=== PATIENT | female | born 1995 | race Caucasian/White ===

== ENCOUNTER 2016-03-16 12:49 | Observation (INO) ==
[2016-03-16] MEDS ORDERED: 0.9 % Sodium Chloride 1,000 ML IVC ONE (13:15)
[2016-03-16] MEDS ORDERED: *HR* Nalbuphine 20 MG/ML AMPUL IVP STA (13:36)
[2016-03-16] MEDS ORDERED: Metoclopramide 10 MG/2 ML VIAL IVP ONE (13:36)
--- NOTE | 2016-03-16 13:37 | Emergency Department Note ---
Disposition Clinical Impression: Appendicitis Qualifiers: Appendicitis type: acute appendicitis Acute appendicitis type: unspecified acute appendicitis type Qualified Code(s): K35.80 - Unspecified acute appendicitis Disposition: Admitted As Inpatient Referrals: Tomas Gaines MD [Primary Care Provider] - Forms: Work/School Release, ED Satisfaction Letter Abdominal Pain HPI - General Chief Complaint: ED Abdominal Pain Stated Complaint: abd pain, hot flashes Time Seen by Provider: 03/16/16 13:15 Source: patient Mode of arrival: ambulatory Limitations: no limitations Nursing Notes Reviewed: Yes Vital Signs Reviewed: Yes - History of Present Illness Pt Subjective Complaint: abdominal pain Onset (ago): day(s) (1) Consistency: intermittent, Worsening Location: RLQ Pain Scale: 8 Quality: aching Radiation: none Migration to: no migration Improves with: nothing Worsens with: nothing Treatments prior to arrival: none - Related Data Previous Rx's Medication Instructions Recorded Butalb/Acetaminophen/Caffeine 1 each PO Q6H PRN #8 capsule 10/04/14 [Fioricet 50-300-40 mg Capsule] Promethazine [Phenergan] 25 mg PO Q6HR PRN #10 tablet 10/04/14 Amoxicillin 875 mg PO BID #14 tablet 02/09/16 Allergies Allergy/AdvReac Type Severity Reaction Status Date / Time hydrocodone [From Vicodin] Allergy Rash Verified 03/16/16 13:07 ibuprofen [From Advil] Allergy Rash Verified 03/16/16 13:07 All systems ED: reviewed and negative except as stated. Constitutional: Denies: fever, chills, weakness Abdominal Pain PMH - Past Medical History Medical history: Reports: other Female Surgical History: Reports: Tonsillectomy VP SOFTWARE history: Reports: no VP SOFTWARE history : 1 Para: 0 Psychiatric history: Reports: no psych history - Social History Smoking status: Never smoker Alcohol use: Reports: none Drug use: Reports: none Physical Exam - General Limitations: no limitations General appearance: alert - Head Head exam: atraumatic, normocephalic, normal inspection - Eye Eye exam: Present: normal appearance, PERRL, EOMI - Expanded Eye Exam Pupils: Left: reactive - ENT ENT exam: normal exam, normal oropharynx, mucous membranes moist - Expanded ENT Exam External ear exam: Present: normal external inspection Mouth exam: Present: normal external inspection Teeth exam: Present: normal inspection Throat exam: Present: normal inspection - Neck Neck exam: Present: normal inspection, full ROM, trachea midline - Chest Chest inspection: Present: normal inspection, symmetric chest wall rise - Respiratory Respiratory exam: Present: normal lung sounds bilaterally - Cardiovascular Cardiovascular exam: Present: regular rate, normal rhythm, normal heart sounds - Abdominal Exam Abdominal exam: Present: soft, tenderness, normal bowel sounds Abdominal tenderness: Present: RLQ, suprapubic, moderate - Extremities Exam Extremities exam: Present: normal inspection, full ROM. Absent: tenderness, pedal edema - Expanded Upper Extremity Exam Shoulder exam: Present: normal inspection, full ROM Arm exam: Present: normal inspection, full ROM Elbow exam: Present: normal inspection, full ROM Forearm/Wrist exam: Present: normal inspection, full ROM Hand exam: Present: normal inspection, full ROM Vascular exam: Normal: capillary refill, radial pulse - Expanded Lower Extremity Exam Hip/Pelvis exam: Present: normal inspection, full ROM Upper leg exam: Present: normal inspection, full ROM Knee exam: Present: normal inspection, full ROM Lower leg exam: Present: normal inspection, full ROM Ankle exam: Present: normal inspection, full ROM Foot/toe exam: Present: normal inspection, full ROM Neurovascular/Tendon exam: Absent: motor deficit, sensory deficit, tendon deficit - Back Exam Back exam: Present: normal inspection, full ROM. Absent: tenderness - Neurological Exam Neurological exam: Present: alert, oriented X3 - Expanded Neurological Exam Patient oriented to: Present: person, place, time Coma Scale Eye Opening: Spontaneous Coma Scale Motor Response: Obeys Commands Coma Scale Verbal Response: Oriented Coma Scale Total: 15 - Psychiatric Psychiatric exam: Present: normal affect, normal mood - Skin Skin exam: Present: warm, dry, intact, normal color Course - Reevaluation(s) Reevaluation #1: Dr. Iraheta and Dr. Wright aware, discussion between the specialist, awaiting return call. Dr. Hein was located, he stated hes ok patient with appendectomy here, no specific recommendations for first trimester other than an US post surgery.. Time: 19:41 Reevaluation #2: dr iraheta updated Time: 19:44 Vital Signs Temperature 98.6 F 03/16/16 13:04 Pulse Rate 148 03/16/16 13:04 Respiratory Rate 16 03/16/16 13:04 Blood Pressure 139/99 03/16/16 13:04 O2 Sat by Pulse Oximetry 98 03/16/16 13:04 Temperature 98.6 F 03/16/16 13:04 Pulse Rate 148 03/16/16 13:04 Respiratory Rate 16 03/16/16 13:04 Blood Pressure 139/99 03/16/16 13:04 O2 Sat by Pulse Oximetry 98 03/16/16 13:04 Oxygen Delivery Oxygen Delivery Room Air Abdominal Pain - Lab Data Result diagrams: 03/16/16 13:27 03/16/16 13:27 Lab Results 03/16/16 03/16/16 03/16/16 Range/Units 12:29 13:27 13:27 WBC 17.7 H (4.3-11.1) K/mcL RBC 4.44 (3.82-4.97) M/mcL Hgb 12.9 (11.5-15.4) g/dL Hct 37.7 (35.3-44.9) % MCV 84.9 (83.0-100.0) fL MCH 29.1 (28.0-33.3) pg MCHC 34.2 (31.6-35.5) g/dL RDW 12.7 (11.5-14.5) % Plt Count 271 (140-400) K/mcL MPV 10.0 (9.4-12.4) fL Immature Gran % 0.8 (0-4) % Seg Neutrophils % 90.0 % Lymphocytes % 4.4 % Monocytes % 4.2 % Eosinophils % 0.2 % Basophils % 0.4 % Neutrophils # 16.0 H (1.6-8.9) K/mcL Lymphocytes # 0.8 (0.6-4.6) K/mcL Monocytes # 0.8 (0.0-1.3) K/mcL Eosinophils # 0.0 (0.0-0.6) K/mcL Basophils # 0.1 (0.0-0.2) K/mcL Immature Plt Fraction 3.0 (1.1-6.1) % PT 12.4 H (9.4-12.1) Seconds INR 1.1 Sodium (136-145) mEq/L Potassium (3.5-4.5) mEq/L Chloride (98-109) mEq/L Carbon Dioxide (19-29) mEq/L BUN (7-20) mg/dL Creatinine (0.57-1.11) mg/dL Est GFR ( Amer) (> 60) Est GFR (Non-Af Amer) (> 60) BUN/Creatinine Ratio (6-26) Glucose (70-99) mg/dL Calculated Osmolality (280-300) Calcium (8.6-10.8) mg/dL Total Bilirubin (0.2-1.2) mg/dL Direct Bilirubin (0.0-0.5) mg/dL Indirect Bilirubin (0.0-1.2) mg/dL AST (5-34) Units/L ALT (0-55) Units/L Alkaline Phosphatase (38-126) Units/L Serum Total Protein (6.0-8.3) g/dL Albumin (3.5-5.0) g/dL Globulin (2.4-3.5) g/dL Albumin/Globulin Ratio (1.1-2.2) Amylase (25-125) Units/L Lipase (8-78) Units/L TSH (0.350-4.840) mcIU/mL Free T4 (0.70-1.48) ng/dl Free T3 (1.71-3.71) pg/mL Urine Color Yellow (Yellow) Urine Clarity Cloudy A (Clear) Urine pH 6.0 (5.0-8.0) pH Units Ur Specific [place] 1.016 (1.010-1.025) Urine Protein Negative (Neg-Trace) mg/dL Urine Glucose (UA) Normal (Normal) mg/dL Urine Ketones 80 H (Negative) mg/dL Urine Blood Negative (Negative) Urine Nitrite Negative (Negative) Urine Bilirubin Negative (Negative) Urine Urobilinogen Normal (Normal) mg/dL Ur Leukocyte Esterase Negative (Negative) Urine Microscopic RBC 0-3 (0-3) per hpf Urine Microscopic WBC 0-3 (0-3) per hpf Ur Squamous Epith Cells Many H (None-Few) per lpf Urine Bacteria Few (None-Few) per hpf Hyaline Casts None Seen (None-Few) per lpf Ur Culture Indicated? NO (NO) 03/16/16 03/16/16 Range/Units 13:27 13:27 WBC (4.3-11.1) K/mcL RBC (3.82-4.97) M/mcL Hgb (11.5-15.4) g/dL Hct (35.3-44.9) % MCV (83.0-100.0) fL MCH (28.0-33.3) pg MCHC (31.6-35.5) g/dL RDW (11.5-14.5) % Plt Count (140-400) K/mcL MPV (9.4-12.4) fL Immature Gran % (0-4) % Seg Neutrophils % % Lymphocytes % % Monocytes % % Eosinophils % % Basophils % % Neutrophils # (1.6-8.9) K/mcL Lymphocytes # (0.6-4.6) K/mcL Monocytes # (0.0-1.3) K/mcL Eosinophils # (0.0-0.6) K/mcL Basophils # (0.0-0.2) K/mcL Immature Plt Fraction (1.1-6.1) % PT (9.4-12.1) Seconds INR Sodium 134 L (136-145) mEq/L Potassium 3.8 (3.5-4.5) mEq/L Chloride 103 (98-109) mEq/L Carbon Dioxide 19 (19-29) mEq/L BUN 5 L (7-20) mg/dL Creatinine 0.63 (0.57-1.11) mg/dL Est GFR ( Amer) > 60 (> 60) Est GFR (Non-Af Amer) > 60 (> 60) BUN/Creatinine Ratio 8 (6-26) Glucose 122 H (70-99) mg/dL Calculated Osmolality 277 L (280-300) Calcium 9.9 (8.6-10.8) mg/dL Total Bilirubin 0.5 (0.2-1.2) mg/dL Direct Bilirubin 0.2 (0.0-0.5) mg/dL Indirect Bilirubin 0.3 (0.0-1.2) mg/dL AST 17 (5-34) Units/L ALT 19 (0-55) Units/L Alkaline Phosphatase 82 (38-126) Units/L Serum Total Protein 7.8 (6.0-8.3) g/dL Albumin 3.7 (3.5-5.0) g/dL Globulin 4.1 H (2.4-3.5) g/dL Albumin/Globulin Ratio 0.9 L (1.1-2.2) Amylase 60 (25-125) Units/L Lipase 20 (8-78) Units/L TSH 3.839 (0.350-4.840) mcIU/mL Free T4 0.97 (0.70-1.48) ng/dl Free T3 3.50 (1.71-3.71) pg/mL Urine Color (Yellow) Urine Clarity (Clear) Urine pH (5.0-8.0) pH Units Ur Specific [place] (1.010-1.025) Urine Protein (Neg-Trace) mg/dL Urine Glucose (UA) (Normal) mg/dL Urine Ketones (Negative) mg/dL Urine Blood (Negative) Urine Nitrite (Negative) Urine Bilirubin (Negative) Urine Urobilinogen (Normal) mg/dL Ur Leukocyte Esterase (Negative) Urine Microscopic RBC (0-3) per hpf Urine Microscopic WBC (0-3) per hpf Ur Squamous Epith Cells (None-Few) per lpf Urine Bacteria (None-Few) per hpf Hyaline Casts (None-Few) per lpf Ur Culture Indicated? (NO)
[2016-03-16 13:44] LABS: Basophils # 0.1 K/mcL (0.0-0.2); Basophils % 0.4 %; Eosinophils % 0.2 %; Hematocrit 37.7 % (35.3-44.9); Hemoglobin 12.9 g/dL (11.5-15.4); Immature Granulocytes % 0.8 % (0-4); Lymphocytes # 0.8 K/mcL (0.6-4.6); Lymphocytes % 4.4 %; Mean Corpuscular HGB Conc 34.2 g/dL (31.6-35.5); Mean Corpuscular Hemoglobin 29.1 pg (28.0-33.3); Mean Corpuscular Volume 84.9 fL (83.0-100.0); Monocytes # 0.8 K/mcL (0.0-1.3); Monocytes % 4.2 %; Platelet Count 271 K/mcL (140-400); Red Blood Count 4.44 M/mcL (3.82-4.97); Red Cell Distribution Width 12.7 % (11.5-14.5)
[2016-03-16 13:49] LABS: INR 1.1; Prothrombin Time 12.4 Seconds (9.4-12.1)
[2016-03-16 13:59] LABS: Alanine Aminotransferase 19 Units/L (0-55); Albumin 3.7 g/dL (3.5-5.0); Albumin/Globulin Ratio 0.9 (1.1-2.2); Alkaline Phosphatase 82 Units/L (38-126); Amylase 60 Units/L (25-125); Aspartate Amino Transferase 17 Units/L (5-34); BUN/Creatinine Ratio 8 (6-26); Bilirubin,Direct 0.2 mg/dL (0.0-0.5); Bilirubin,Indirect 0.3 mg/dL (0.0-1.2); Bilirubin,Total 0.5 mg/dL (0.2-1.2); Blood Urea Nitrogen 5 mg/dL (7-20); Calcium 9.9 mg/dL (8.6-10.8); Carbon Dioxide 19 mEq/L (19-29); Chloride 103 mEq/L (98-109); Globulin 4.1 g/dL (2.4-3.5); Glucose 122 mg/dL (70-99); Lipase 20 Units/L (8-78); Osmolality,Calculated 277 (280-300); Potassium 3.8 mEq/L (3.5-4.5); Sodium 134 mEq/L (136-145); Total Protein 7.8 g/dL (6.0-8.3); eGFR For African Americans > 60 (> 60); eGFR For Non-African Americans > 60 (> 60)
[2016-03-16 14:03] LABS: Bilirubin,Urine Negative (Negative); Blood,Urine Negative (Negative); Clarity,Urine Cloudy (Clear); Color,Urine Yellow (Yellow); Glucose,Urine (UA) Normal (Normal); Ketones,Urine 80 mg/dL (Negative); Leukocyte Esterase,Urine Negative (Negative); Nitrite,Urine Negative (Negative); Protein,Urine Negative (Neg-Trace); Specific Gravity,Urine 1.016 (1.010-1.025); Urobilinogen,Urine Normal (Normal)
[2016-03-16 14:05] LABS: Bacteria,Urine Few per hpf (None-Few); Hyaline Casts,Urine None Seen per lpf (None-Few); RBC,Urine 0-3 per hpf (0-3); Squamous Epithelial Cell,Urine Many per lpf (None-Few); WBC,Urine 0-3 per hpf (0-3)
[2016-03-16 14:19] LABS: Thyroid Stimulating Hormone 3.839 mcIU/mL (0.350-4.840); Triiodothyronine (T3) Free 3.5 pg/mL (1.71-3.71)
[2016-03-16] MEDS ORDERED: Ondansetron 4 MG/2 ML VIAL IVP ONE ×2 (20:00→20:44)
--- NOTE | 2016-03-16 20:31 | General Surg History&Physical ---
Date of Encounter: 03/16/16 Time of Encounter: 20:29 Assessment and Plan (1) Acute appendicitis Current Visit: Yes Status: Acute The assessment and plan as outlined above was discussed with the patient and/or family members who expressed understanding and agreement. All questions were answered. I personally reviewed the MRI studies demonstrating acute appendicitis. I have discussed the findings with the patient and think it would be appropriate to proceed with a laparoscopic appendectomy this evening. Risks and benefits have been discussed with the patient including possible miscarriage, and she agrees to the above plan. Qualifiers: Acute appendicitis type: with localized peritonitis Qualified Code(s): K35.3 - Acute appendicitis with localized peritonitis History of Present Illness Chief complaint: Right lower abdominal pain HPI: Ms. Zamora is a 20 year old female who is 11 weeks gestation presents with vincent-umbilical pain that progressed to RLQ pain starting at 2am. She states that between 2-10am the pain was located near the umbilicus but later changed the the RLQ as a constant sharp pain. She admits to nausea and vomiting but does admit that she has been having those symptoms during this . She denies any diarrhea or constipation and denies any rectal bleeding. Past Med Surg Social Fam HX - Past Medical History Medical history: other Psychiatric history: no psych history - Past Surgical History Surgical History: other (T&A, myringotomy tubes) - Social History Smoking Status: Never smoker Smokeless Tobacco Status: No Alcohol use: none Drug use: none Medications and Allergies Doxylamine/Pyridoxine HCl [Diclegis Dr 10-10 mg Tablet] 1 each PO BID 03/16/16 [ History] Doxylamine/Pyridoxine HCl [Diclegis Dr 10-10 mg Tablet] 2 each PO HS 03/16/16 [ History] Levothyroxine [Synthroid] 25 mcg PO DAILY 03/16/16 [History] Vit Calc,Iron,Folic [ Vitamins] 1 each PO DAILY 03/16/16 [ History] Allergies hydrocodone [From Vicodin] Allergy (Verified 03/16/16 13:07) Rash ibuprofen [From Advil] Allergy (Verified 03/16/16 13:07) Rash Review of Systems All systems PM: reviewed and no additional remarkable complaints except as stated All systems PM: A 10-system review of systems was performed and is negative for pertinent findings except as documented above in the HPI. General Surgery Exam Initial Vital Signs Temp Pulse Resp BP Pulse Ox 98.6 F 148 16 139/99 98 03/16/16 13:04 03/16/16 13:04 03/16/16 13:04 03/16/16 13:04 03/16/16 13:04 - General physical appearance well developed, well nourished, no distress - Eyes PERRL, normal ocular movement - Neck no masses, trachea midline, no lymphadectomy - Respiratory normal expansion, normal respiratory effort, clear to auscultation - Cardiovascular Cardiovascular exam: Present: RRR, no murmurs/rubs/gallops - Abdomen Abdomen general surgery: Present: bowel sounds present, soft, tender (Noted in the RLQ to moderate palpation.) - Integumentary Integumentary general surgery: Present: warm and dry - Neurologic Present: CN 2-12 grossly intact - Musculoskeletal Present: other (No clubbing, cyanosis, or edema) - Psychiatric Psychiatric general surgery: Present: A&Ox3, oriented to person, oriented to place, oriented to time Results - Labs 03/17/16 04:52 03/17/16 04:52 Abnormal lab results WBC 17.7 K/mcL (4.3-11.1) H 03/16/16 13:27 Neutrophils # 16.0 K/mcL (1.6-8.9) H 03/16/16 13:27 PT 12.4 Seconds (9.4-12.1) H 03/16/16 13:27 Sodium 134 mEq/L (136-145) L 03/16/16 13:27 BUN 5 mg/dL (7-20) L 03/16/16 13:27 Glucose 122 mg/dL (70-99) H 03/16/16 13:27 Calculated Osmolality 277 (280-300) L 03/16/16 13:27 Globulin 4.1 g/dL (2.4-3.5) H 03/16/16 13:27 Albumin/Globulin Ratio 0.9 (1.1-2.2) L 03/16/16 13:27 Urine Clarity Cloudy (Clear) A 03/16/16 12:29 Urine Ketones 80 mg/dL (Negative) H 03/16/16 12:29 Ur Squamous Epith Cells Many per lpf (None-Few) H 03/16/16 12:29 All other labs normal. - Imaging CT scan - abdomen: report reviewed Additional studies: MRI of the abdomen demonstrates evidence acute appendicitis
--- NOTE | 2016-03-16 20:43 | Anesthesia Evaluation PreOp ---
Date of Encounter: 03/16/16 Time of Encounter: 20:41 - Past History Planned Operation: Lap. Appy. 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 Pre surgical FHT 166) Alcohol Use: none Drug use: none Medications and Allergies Doxylamine/Pyridoxine HCl [Diclegis Dr 10-10 mg Tablet] 1 each PO BID 03/16/16 [ History] Doxylamine/Pyridoxine HCl [Diclegis Dr 10-10 mg Tablet] 2 each PO HS 03/16/16 [ History] Levothyroxine [Synthroid] 25 mcg PO DAILY 03/16/16 [History] Vit Calc,Iron,Folic [ Vitamins] 1 each PO DAILY 03/16/16 [ History] Allergies hydrocodone [From Vicodin] Allergy (Verified 03/16/16 13:07) Rash ibuprofen [From Advil] Allergy (Verified 03/16/16 13:07) Rash - Meds/Allergy Pre-op Review Medications Reviewed: Yes Allergies Reviewed: Yes Beta Blockers on Current Med List: No Anesthesia Results - Labs 03/16/16 13:27 03/16/16 13:27 Anesthesia Exam O2 Sat Height 1.57 m Weight 68.039 kg O2 Sat by Pulse Oximetry 97 O2 Sat by Pulse Oximetry 98 Vital Signs Temp Pulse Resp BP Pulse Ox 98.6 F 148 16 139/99 98 03/16/16 13:04 03/16/16 13:04 03/16/16 13:04 03/16/16 13:04 03/16/16 13:04 Height: 5'2'' Weight: 150# NPO (# of Hours): > 8 hrs Pain Scale: 0 Pain Scale Used: Numeric (1 - 10) - HEENT Pupil (Motor): Pupils equal, EOMI Mallampati: III Teeth: Normal Oral Opening: Greater than 3 - DRIVER'S LICENSE EXAMINER LOC: Oriented DRIVER'S LICENSE EXAMINER Motor: Normal RUE, Normal LUE, Normal RLE, Normal LLE, Normal Face DRIVER'S LICENSE EXAMINER Sensory: Normal: RUE, LUE, RLE, LLE, Face - Cardiac Rhythm: Regular Murmur: None JVD: No Carotid Bruit: No - Pulmonary Breath Sounds: bilateral Clear Respiratory Effort: Symmetrical Anesthesia Assess/Plan ASA Score: 2, E Modified Wiergate Scale for Level of Consciousness: Cooperative, oriented, and tranquil Anesthetic Plan: General Autologous Blood: Yes Monitoring Plan: Standard Monitors Recovery Plan: PACU
[2016-03-16] MEDS ORDERED: *HR* HYDROmorphone (PF) 1 MG/ML SYRINGE IVP PRN (20:44)
[2016-03-16] MEDS ORDERED: *HR* Promethazine 25 MG/ML VIAL IVP PRN (20:44)
[2016-03-16] MEDS ORDERED: *HR* Propofol 200 MG/20 ML VIAL IVP ONE (20:53)
[2016-03-16] MEDS ORDERED: *HR* FentaNYL (PF) 100 MCG/2 ML VIAL ONE ×2 (20:53→21:37)
[2016-03-16] MEDS ORDERED: Lidocaine -MPF 2% 2 ML VIAL ONE (20:55)
[2016-03-16] MEDS ORDERED: *HR* Succinylcholine 200 MG/10 ML VIAL IVP ONE (20:55)
[2016-03-16] MEDS ORDERED: *HR* Rocuronium Bromide 50 MG/5 ML VIAL ONE (20:55)
[2016-03-16] MEDS ORDERED: Ondansetron 4 MG/2 ML VIAL ONE (20:55)
[2016-03-16] MEDS ORDERED: CefOXitin 2,000 MG VIAL IVPB ONE (21:02)
--- NOTE | 2016-03-16 22:17 | Operative Note ---
Date of procedure: 03/16/16 Pre-op diagnosis: Acute appendicitis Post-op diagnosis: same Procedure: Laparoscopic appendectomy Anesthesia: KIARA Surgeon: Rhys Iraheta Lifestyle Director Other: RAMOS Hadley Condition: stable Disposition: PACU Procedure in Detail: Date of surgery: 03/16/16 After properly identifying the patient, the patient was brought to the operating room and placed in the supine position. After proper IV sedation was achieved followed by general endotracheal intubation, the patient's abdomen was prepped and draped in a normal sterile fashion. A timeout was performed noting the patient's name and type of procedure to be performed. Palpation of the lumen demonstrated a gravid uterus. A subumbilical incision with an 11 blade scalpel was safely made down to the level of the rectus fascia. The rectus fascia was incised and the abdomen was entered and a 12 mm port was placed in the incision. A laparoscopic camera was placed through the port which showed no injury to the intra-abdominal organs upon entry. The abdomen was insufflated with carbon dioxide and a suprapubic 5 mm port and a left lower quadrant 5 mm port were placed under direct camera visualization. The suprapubic port was carefully placed to avoid injury to the enlarged uterus ( the port was appear to the dome of the uterus). The right lower quadrant was examined and there was evidence of a vastly dilated appendix with fibrinous exudate that was adjacent to the right side of the uterus near the fallopian tube, consistent with acute appendicitis. The appendix was grasped with a nontraumatic grasper and retracted anteriorly. The entire length of the appendix was noted to be thickened with inflamed and thickened epiploica. Bovie cauterization was necessary to dissect out the epiploica to further visualize the appendix. Blunt dissection was carried out carefully to help identify the structure was given the extraordinary dilation and inflammation surrounding the appendix. The meso-appendix and base of the appendix were dissected free with a [place] dissector. The meso-appendix and the base of the appendix were transected with several independent staple lines with a laparoscopic ROSINA stapler. The appendix was approximately 7.5-8 cm in length and 3 cm in width and was successfully removed from the abdomen via an Endobag. The right lower quadrant and pelvis were copiously irrigated with normal saline solution until the effluent was clear. Reinspection of the right lower quadrant demonstrated maintenance of hemostasis. All ports were removed from the abdomen after the abdomen was desufflated. The subumbilical incision was closed by reapproximating the fascia with a figure -of-eight 0 Vicryl suture. The subcutaneous tissue was reapproximated with an interrupted 3-0 Vicryl suture and the epidermal and dermal layers for the remaining incisions were closed with 4-0 Monocryl sutures. Needle, sponge, and instrument counts were correct 2 and the incisions were covered with Steri- Strips and Band-Aids. The patient was aroused from IV sedation, extubated in the operating room without complication, and transported to the recovery room in stable condition.
[2016-03-16] MEDS ORDERED: Neostigmine Methylsulfate 3 MG/3 ML SYRINGE ONE (22:19)
[2016-03-16] MEDS ORDERED: Acetaminophen IV 1,000 MG/100 ML INFUS..BTL IVPB ONE (22:41)
--- NOTE | 2016-03-16 23:12 | Anesthesia Evaluation Post Op ---
Date of Encounter: 03/16/16 Time of Encounter: 23:18 - Vital Signs Vital Signs: Vital Signs/O2 Sat, Most Current Temp Pulse Resp BP Pulse Ox 98.7 F 84 18 126/74 97 03/16/16 22:50 03/16/16 23:10 03/16/16 23:10 03/16/16 23:10 03/16/16 23:10 FHT via ultrasound 144 - Lungs Lungs: Clear Ascult./Percussion - Airway Airway: Non-obstructed - Cardiovascular Regular Rate - Mental Status Mental Status: Alert & Oriented, Answers Appropriately - Pain Pain Scale: 6 Pain Scale used: Numeric (1 - 10) - Nausea Vomiting Nausea Vomiting: Not Present - Hydration Hydration: NPO, Has not voided - Discharge PostOp Status: Transfer Patient to floor
[2016-03-17] MEDS: cefOXitin 1,000 MG in D5% in Water (Mini-Bag+) 100 ML IVPB SCH ×4 (00:05→23:25)
[2016-03-17] MEDS: 0.9 % Sodium Chloride 1,000 ML IVC SCH ×2 (00:11→11:26)
[2016-03-17] MEDS: *HR* Promethazine 25 MG/ML VIAL IVP PRN ×4 (00:15→23:26)
[2016-03-17] MEDS: *HR* OxyCODONE/APAP 10/325 TABLET PO PRN (00:23)
[2016-03-17] MEDS: *HR* HYDROmorphone (PF) 1 MG/ML SYRINGE IVP PRN ×8 (01:42→22:39)
[2016-03-17 06:04] LABS: Basophils # 0.1 K/mcL (0.0-0.2); Basophils % 0.3 %; Eosinophils % 0.1 %; Hemoglobin 11.8 g/dL (11.5-15.4); Immature Granulocytes % 1.5 % (0-4); Lymphocytes # 1.2 K/mcL (0.6-4.6); Lymphocytes % 8.1 %; Mean Corpuscular HGB Conc 33.7 g/dL (31.6-35.5); Mean Corpuscular Hemoglobin 29.2 pg (28.0-33.3); Mean Corpuscular Volume 86.6 fL (83.0-100.0); Mean Platelet Volume 10.2 fL (9.4-12.4); Monocytes # 0.7 K/mcL (0.0-1.3); Monocytes % 4.5 %; Neutrophils # 12.5 K/mcL (1.6-8.9); Platelet Count 248 K/mcL (140-400); Red Blood Count 4.04 M/mcL (3.82-4.97); Red Cell Distribution Width 13.2 % (11.5-14.5); Segmented Neutrophils % 85.5 %
[2016-03-17] MEDS: *HR* Heparin 5,000 UNIT/ML VIAL SQ SCH ×2 (06:09→18:19)
[2016-03-17 06:26] LABS: BUN/Creatinine Ratio 7 (6-26); Calcium 8.6 mg/dL (8.6-10.8); Carbon Dioxide 19 mEq/L (19-29); Chloride 107 mEq/L (98-109); Glucose 131 mg/dL (70-99); Osmolality,Calculated 281 (280-300); Potassium 3.6 mEq/L (3.5-4.5); Sodium 136 mEq/L (136-145); eGFR For African Americans > 60 (> 60); eGFR For Non-African Americans > 60 (> 60)
[2016-03-17 06:35] LABS: Blood Urea Nitrogen 4 mg/dL (7-20)
[2016-03-17] MEDS: Pantoprazole 40 MG VIAL IVP SCH (07:39)
--- NOTE | 2016-03-17 13:09 | General Surgery Progress Note ---
Date of Encounter: 03/17/16 Time of Encounter: 13:07 - Assessment and Plan (1) Acute appendicitis Current Visit: Yes Status: Acute The patient is s/p a Lap Appy. Still with considerable pain. Noted nausea. Leukocytosis, but decreasing. Continue IVF and IV abx. Encourage OOB and ambulation. Will follow CBC in am. Await return of bowel function. Qualifiers: Acute appendicitis type: with localized peritonitis Qualified Code(s): K35.3 - Acute appendicitis with localized peritonitis Subjective Patient reports: still having pain (noted periumbilical pain. Nausea without vomiting. No flatus) Objective Vital Signs - Last 8 Hours Temp Pulse Resp BP Pulse Ox 03/17/16 11:17 98.1 F 102 14 102/67 96 03/17/16 06:48 98.5 F 75 16 111/70 95 Intake and Output 03/16/16 03/17/16 03/17/16 23:59 07:59 15:59 Intake Total 1000 / 1000 500 / 500 Output Total 430 / 430 0 / 0 Balance -430 / -430 1000 / 1000 500 / 500 Intake: IV Fluids 600 / 600 500 / 500 0.9 % Sodium Chloride 1, 600 / 600 400 / 400 000 ML @ 80 mls/hr IVC . [id number] [facility] Rx#: [id number] Mefoxin 1,000 MG In 100 / 100 Dextrose 5% (Minibag+) 100 ML 100 ML @ 200 mls/ hr IVPB Q8HR [facility] Rx#: [id number] Oral 400 / 400 Output: Urine 400 / 400 0 / 0 Estimated Blood Loss 30 / 30 Other: # Voids 4 2 - Abdomen Abdomen: Present: bowel sounds present, tender (noted in lower abdomen. Band- Aids in place.) - Labs 03/17/16 04:52 03/17/16 04:52 Diabetes panel 03/17/16 Range/Units 04:52 Sodium 136 (136-145) mEq/L Potassium 3.6 (3.5-4.5) mEq/L Chloride 107 (98-109) mEq/L Carbon Dioxide 19 (19-29) mEq/L BUN 4 L (7-20) mg/dL Creatinine 0.55 L (0.57-1.11) mg/dL Glucose 131 H (70-99) mg/dL Calcium 8.6 (8.6-10.8) mg/dL Calcium panel 03/17/16 Range/Units 04:52 Calcium 8.6 (8.6-10.8) mg/dL Pituitary panel 03/17/16 Range/Units 04:52 Sodium 136 (136-145) mEq/L Potassium 3.6 (3.5-4.5) mEq/L Chloride 107 (98-109) mEq/L Carbon Dioxide 19 (19-29) mEq/L BUN 4 L (7-20) mg/dL Creatinine 0.55 L (0.57-1.11) mg/dL Glucose 131 H (70-99) mg/dL Calcium 8.6 (8.6-10.8) mg/dL Adrenal panel 03/17/16 Range/Units 04:52 Sodium 136 (136-145) mEq/L Potassium 3.6 (3.5-4.5) mEq/L Chloride 107 (98-109) mEq/L Carbon Dioxide 19 (19-29) mEq/L BUN 4 L (7-20) mg/dL Creatinine 0.55 L (0.57-1.11) mg/dL Glucose 131 H (70-99) mg/dL Calcium 8.6 (8.6-10.8) mg/dL - VTE Documentation of Mechanical Device: Intermittent pneumatic compression device Consult Discharge Plan - Plan Referrals: Tomas Gaines MD [Primary Care Provider] -
--- NOTE | 2016-03-17 15:14 | Electrocardiograph Report ---
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
[2016-03-18] MEDS: *HR* HYDROmorphone (PF) 1 MG/ML SYRINGE IVP PRN ×2 (02:04→06:07)
[2016-03-18] MEDS: 0.9 % Sodium Chloride 1,000 ML IVC SCH ×2 (02:07→15:49)
[2016-03-18 04:45] LABS: Basophils # 0.1 K/mcL (0.0-0.2); Basophils % 0.5 %; Eosinophils # 0.4 K/mcL (0.0-0.6); Eosinophils % 4.1 %; Hematocrit 34.4 % (35.3-44.9); Hemoglobin 11.2 g/dL (11.5-15.4); Immature Granulocytes % 0.6 % (0-4); Lymphocytes # 1.8 K/mcL (0.6-4.6); Lymphocytes % 18.6 %; Mean Corpuscular HGB Conc 32.6 g/dL (31.6-35.5); Mean Corpuscular Hemoglobin 28.4 pg (28.0-33.3); Mean Corpuscular Volume 87.1 fL (83.0-100.0); Mean Platelet Volume 9.8 fL (9.4-12.4); Monocytes # 0.5 K/mcL (0.0-1.3); Monocytes % 5.4 %; Neutrophils # 6.8 K/mcL (1.6-8.9); Platelet Count 220 K/mcL (140-400); Red Blood Count 3.95 M/mcL (3.82-4.97); Red Cell Distribution Width 13.1 % (11.5-14.5); Segmented Neutrophils % 70.8 %
[2016-03-18] MEDS: *HR* Heparin 5,000 UNIT/ML VIAL SQ SCH ×2 (06:06→16:56)
[2016-03-18] MEDS: *HR* Promethazine 25 MG/ML VIAL IVP PRN ×3 (06:07→17:50)
[2016-03-18] MEDS: Pantoprazole 40 MG VIAL IVP SCH (09:23)
[2016-03-18] MEDS: cefOXitin 1,000 MG in D5% in Water (Mini-Bag+) 100 ML IVPB SCH ×2 (09:23→15:44)
[2016-03-18] MEDS: *HR* OxyCODONE/APAP 10/325 TABLET PO PRN (09:47)
--- NOTE | 2016-03-18 13:19 | Discharge Summary ---
<Galen Joy - Last Filed: 03/18/16 13:08> Date of Encounter: 03/18/16 - Discharge Diagnosis (1) Acute appendicitis Priority: Primary Status: Acute Qualifiers: Acute appendicitis type: with localized peritonitis Qualified Code(s): K35.3 - Acute appendicitis with localized peritonitis - Discharge Medications Prescriptions: OxyCODONE/APAP 5/325 [Percocet 5/325 MG] 1 each PO Q4HR PRN #30 tablet PRN Reason: Pain Amoxicillin/Clavulanate [Augmentin] 875 mg PO BIDWM 5 Days Docusate [Colace] 100 mg PO BID #30 capsule Home Medications: Doxylamine/Pyridoxine HCl [Diclegis Dr 10-10 mg Tablet] 1 each PO BID 03/16/16 [ History] Doxylamine/Pyridoxine HCl [Diclegis Dr 10-10 mg Tablet] 2 each PO HS 03/16/16 [ History] Levothyroxine [Synthroid] 25 mcg PO DAILY 03/16/16 [History] Vit Calc,Iron,Folic [ Vitamins] 1 each PO DAILY 03/16/16 [ History] Amoxicillin/Clavulanate [Augmentin] 875 mg PO BIDWM 5 Days 03/18/16 [Rx] Docusate [Colace] 100 mg PO BID #30 capsule 03/19/16 [Rx] OxyCODONE/APAP 5/325 [Percocet 5/325 MG] 1 each PO Q4HR PRN #30 tablet 03/19/16 [Rx] Allergies/Adverse Reactions: Allergies hydrocodone [From Vicodin] Allergy (Verified 03/16/16 13:07) Rash ibuprofen [From Advil] Allergy (Verified 03/16/16 13:07) Rash General Surgery Exam Initial Vital Signs Temp Pulse Resp BP Pulse Ox 98.6 F 148 16 139/99 98 03/16/16 13:04 03/16/16 13:04 03/16/16 13:04 03/16/16 13:04 03/16/16 13:04 - General physical appearance well developed, well nourished, no distress - Eyes normal ocular movement - ENT normal mucosa, atraumatic, normocephalic - Neck trachea midline - Respiratory normal respiratory effort, clear to auscultation - Cardiovascular Cardiovascular exam: Present: RRR - Abdomen Abdomen general surgery: Present: bowel sounds present, soft, tender (expected post-operative tenderness, worse in epigastric and periumbilical tenderness to palpational.) - Incision Incision: Present: clean and dry, intact - Integumentary Integumentary general surgery: Present: warm and dry, no abnormal pigmentation - Neurologic Present: CN 2-12 grossly intact - Psychiatric Psychiatric general surgery: Present: A&Ox3, speech is normal, memory intact Date of admission: 03/16/16 20:24 Primary care physician: Tomas Gaines MD Discharging clinician: Rhys Iraheta - Patient Status Disposition: Home, Self-Care Condition: Good Functional capacity at discharge: independent ambulation Overall status at discharge: patient is progressing back to baseline - Discharge Instructions Instructions: Appendicitis (DC) Follow Up With: Tomas Gaines MD [Primary Care Provider] - Ann Marie Hodge CNP [Advanced Practice Nurse] - 04/01/16 10:00 am (surgery follow-up) Additional Instructions: #1 may shower, no tub bath for 2 weeks #2 wash incisions with soap and water and pat dry daily #3 no lifting, pushing, pulling more than 15 pounds for the next 2 weeks #4 no driving until off narcotics for 24 hours and able to safely react in the car #5 may climb stairs - Diet and Activity Activity: increase activity as tolerated Diet: advance to your usual diet - Hospital Course Hospital course: Ms. Zamora is a 20 year old female, 11 week gestational intrauterine , admitted for vincent-umbilical pain progressing to sharp pain in RLQ with associated N/V. Laparoscopic appendectomy completed by Dr. Iraheta on 03/16/16. Patient has nausea at baseline, currently complaining of continued nausea and expected post-operative tenderness. - Time Spent with Patient Total time spent providing and/or coordinating discharge services: Less than 30 minutes Labs on day of discharge: Labs from last 24 hours 03/18/16 04:08 WBC 9.6 RBC 3.95 Hgb 11.2 L Hct 34.4 L MCV 87.1 MCH 28.4 MCHC 32.6 RDW 13.1 Plt Count 220 MPV 9.8 Immature Gran % 0.6 Seg Neutrophils % 70.8 Lymphocytes % 18.6 Monocytes % 5.4 Eosinophils % 4.1 Basophils % 0.5 Neutrophils # 6.8 Lymphocytes # 1.8 Monocytes # 0.5 Eosinophils # 0.4 Basophils # 0.1 - Impressions ITS Impressions Obstetrics Ultrasound 03/16/16 23:03 IMPRESSION: Limited study demonstrating a live intrauterine . Heart rate is 144 beats per minute. By crown-rump length the estimated gestational age is 11 weeks and 3 days with an estimated date of delivery of 10/02/2016. D/ / Vincent Barrett MD / Vincent Barrett MD Interpreting Provider: Vincent Barrett MD <Ann Marie Hodge - Last Filed: 03/19/16 11:42> Time of Encounter: 11:29 - Discharge Diagnosis (1) Acute appendicitis Status: Resolved Qualifiers: Acute appendicitis type: with localized peritonitis Qualified Code(s): K35.3 - Acute appendicitis with localized peritonitis (2) Nausea and vomiting Priority: Secondary Status: Resolved Qualifiers: Vomiting type: unspecified General Surgery Exam Initial Vital Signs Temp Pulse Resp BP Pulse Ox 98.6 F 148 16 139/99 98 03/16/16 13:04 03/16/16 13:04 03/16/16 13:04 03/16/16 13:04 03/16/16 13:04 - General physical appearance well developed, well nourished, no distress - Eyes normal ocular movement - ENT normal mucosa, atraumatic, normocephalic - Neck trachea midline - Respiratory normal respiratory effort, clear to auscultation - Cardiovascular Cardiovascular exam: Present: RRR - Abdomen Abdomen general surgery: Present: bowel sounds present, soft, tender - Incision Incision: Present: clean and dry, intact - Integumentary Integumentary general surgery: Present: warm and dry - Neurologic Present: CN 2-12 grossly intact - Musculoskeletal Present: normal gait, normal posture Date of admission: 03/16/16 20:24 Primary care physician: Tomas Gaines MD Anticipated date of discharge: 03/19/16 - Patient Status Functional capacity at discharge: independent ambulation Overall status at discharge: patient is progressing back to baseline - Diet and Activity Activity: other (See additional instructions above) Diet: advance to your usual diet - Hospital Course Hospital course: Ms. Zamora is a 20 year old female s/p appendectomy. POD #2 her nausea and vomiting has improved with decrease in Percocet to 5/325mg. Tolerating diet without nausea/vomiting. Passing flatus today. Vitals are stable and afebrile. Voiding and ambulating without difficulty. Will discharge to home and plan for outpatient follow-up in the next 10-14 days. - Time Spent with Patient Total time spent providing and/or coordinating discharge services: Less than 30 minutes - Impressions ITS Impressions Obstetrics Ultrasound 03/16/16 23:03 IMPRESSION: Limited study demonstrating a live intrauterine . Heart rate is 144 beats per minute. By crown-rump length the estimated gestational age is 11 weeks and 3 days with an estimated date of delivery of 10/02/2016. D/ / Vincent Barrett MD / Vincent Barrett MD Interpreting Provider: Vincent Barrett MD - Attending Attestation I examined this patient and my medical decision-making was reviewed with the BROADCAST MAINTENANCE TECHNICIAN/PA/Advanced Practice Nurse/Resident Physician. I agree with the documented findings, disposition and treatment plan as described except to the extent set forth below.
--- NOTE | 2016-03-18 15:10 | General Surgery Progress Note ---
<Galen Joy - Last Filed: 03/18/16 15:11> Date of Encounter: 03/18/16 Time of Encounter: 13:30 - Assessment and Plan (1) Acute appendicitis Current Visit: Yes Status: Acute Restarting home medications including diclegis for nausea/vomiting. Pain medication adjusted. Supportive care. Qualifiers: Acute appendicitis type: with localized peritonitis Qualified Code(s): K35.3 - Acute appendicitis with localized peritonitis (2) Nausea and vomiting Current Visit: Yes Status: Acute Hx of assosciated nausea. States pain medication is making nausea worse, reduced dosage. Restarted home anti-emetics medication. Subjective Patient reports: still having pain, voiding w/o difficulty, nausea, vomiting, afebrile Objective Vital Signs - Last 8 Hours Temp Pulse Resp BP Pulse Ox 03/18/16 07:45 98.5 F 103 12 128/78 98 Intake and Output 03/17/16 03/18/16 03/18/16 23:59 07:59 15:59 Intake Total 1057 / 1057 823 / 823 370 / 370 Output Total 400 / 400 0 / 0 50 / 50 Balance 657 / 657 823 / 823 320 / 320 Intake: IV Fluids 497 / 497 703 / 703 100 / 100 0.9 % Sodium Chloride 1, 397 / 397 603 / 603 000 ML @ 80 mls/hr IVC . [id number] [facility] Rx#: [id number] Mefoxin 1,000 MG In 100 / 100 100 / 100 100 / 100 Dextrose 5% (Minibag+) 100 ML 100 ML @ 200 mls/ hr IVPB Q8HR [facility] Rx#: [id number] Oral 560 / 560 120 / 120 270 / 270 Output: Urine 400 / 400 0 / 0 Emesis 50 / 50 Other: Meal Dinner Lunch Percent of Meal Consumed 25% 10% # Voids 1 1 Weight 70.08 kg Patient Weight 03/18/16 23:59 Weight 70.08 kg - General physical appearance well developed, well nourished, no distress - Eyes normal ocular movement - ENT normal mucosa, atraumatic, normocephalic - Neck Neck exam: trachea midline - Respiratory normal respiratory effort, clear to auscultation - Cardiovascular Cardiovascular exam: Present: tachycardia - Abdomen Abdomen: Present: bowel sounds present, soft, tender (expected post-operative tenderness, worst in the epigastric and periumbilical region.). Absent: distended, guarding, rigid - Incision Incision: Present: clean and dry, intact - Integumentary no rash - Neurologic CN 2-12 grossly intact - Psychiatric oriented to time, oriented to person, oriented to place, speech is normal, memory intact - Labs 03/18/16 04:08 03/17/16 04:52 - VTE Documentation of Mechanical Device: Intermittent pneumatic compression device Consult Discharge Plan - Plan Instructions: Appendicitis (DC) Referrals: Tomas Gaines MD [Primary Care Provider] - Prescriptions: OxyCODONE/APAP 10/325 [Percocet 10/325 MG] 1 each PO Q6HR PRN #26 tablet PRN Reason: Moderate Pain Amoxicillin/Clavulanate [Augmentin] 875 mg PO BIDWM 5 Days <Rhys Iraheta - Last Filed: 03/18/16 17:46> - Assessment and Plan (1) Acute appendicitis Current Visit: Yes Status: Acute Qualifiers: Acute appendicitis type: with localized peritonitis Qualified Code(s): K35.3 - Acute appendicitis with localized peritonitis Objective Vital Signs - Last 8 Hours Temp Pulse Resp BP Pulse Ox 03/18/16 16:32 98.0 F 99 12 107/70 97 Intake and Output 03/18/16 03/18/16 03/18/16 07:59 15:59 23:59 Intake Total 823 / 823 1370 / 1370 Output Total 0 / 0 50 / 50 Balance 823 / 823 1320 / 1320 Intake: IV Fluids 703 / 703 1100 / 1100 0.9 % Sodium Chloride 1, 603 / 603 1000 / 1000 000 ML @ 80 mls/hr IVC . [id number] [facility] Rx#: [id number] Mefoxin 1,000 MG In 100 / 100 100 / 100 Dextrose 5% (Minibag+) 100 ML 100 ML @ 200 mls/ hr IVPB Q8HR [facility] Rx#: [id number] Oral 120 / 120 270 / 270 Output: Urine 0 / 0 Emesis 50 / 50 Other: Meal Lunch Percent of Meal Consumed 10% # Voids 1 1 Weight 70.08 kg Patient Weight 03/18/16 23:59 Weight 70.08 kg - Labs 03/18/16 04:08 03/17/16 04:52 - Attending Attestation I examined this patient and my medical decision-making was reviewed with the CIVIL DRAFTING TECHNICIAN/PA/Advanced Practice Nurse/Resident Physician. I agree with the documented findings, disposition and treatment plan as described except to the extent set forth below. Mode patient's symptoms of nausea and periumbilical pain. Patient is back on her baseline nausea medications as hopefully break the cycle postoperative nausea. Recommend ambulation in continue with IV antibiotics. Potential discharge within the next 24 hours.
[2016-03-18] MEDS: *HR* OxyCODONE/APAP 5/325 TABLET PO PRN (15:44)
[2016-03-18] MEDS: Prenatal Vit/FA 1 EACH TABLET PO SCH (15:44)
[2016-03-18] MEDS: Levothyroxine 25 MCG TABLET PO SCH (15:44)
[2016-03-18] MEDS: DOXYLAMINE PO SCH (19:48)
[2016-03-18] MEDS: PYRIDOXINE HCL PO SCH (19:48)
[2016-03-18] MEDS ORDERED: DOXYLAMINE PO SCH (21:00)
[2016-03-18] MEDS ORDERED: PYRIDOXINE HCL PO SCH (21:00)
[2016-03-19] MEDS: cefOXitin 1,000 MG in D5% in Water (Mini-Bag+) 100 ML IVPB SCH ×2 (00:05→08:21)
[2016-03-19] MEDS: *HR* OxyCODONE/APAP 5/325 TABLET PO PRN (00:08)
[2016-03-19] MEDS: 0.9 % Sodium Chloride 1,000 ML IVC SCH (05:53)
[2016-03-19] MEDS: *HR* Promethazine 25 MG/ML VIAL IVP PRN (05:57)
[2016-03-19] MEDS: *HR* Heparin 5,000 UNIT/ML VIAL SQ SCH (06:03)
[2016-03-19] MEDS: Prenatal Vit/FA 1 EACH TABLET PO SCH (08:21)
[2016-03-19] MEDS: Pantoprazole 40 MG VIAL IVP SCH (08:21)
[2016-03-19] MEDS: Levothyroxine 25 MCG TABLET PO SCH (08:21)
[2016-03-19] MEDS: PYRIDOXINE HCL PO SCH (08:24)
[2016-03-19] MEDS: DOXYLAMINE PO SCH (08:24)
[2016-03-19 11:06] VITALS: BP 108/68
== END 2016-03-19 12:43 | disposition home or self-care (01) ==
LOC: 3ANU 12:49 → EMEROO 12:49 → 3ANU 20:34
PROVIDERS: ADMIT Surgery; ATTEND Surgery

== ENCOUNTER 2021-05-14 09:19 | Inpatient (IN) ==
[2021-05-14] MEDS ORDERED: Metoclopramide 10 MG/2 ML VIAL IVP PRN (09:29)
[2021-05-14] MEDS ORDERED: Naloxone 0.4 MG/ML INJ IVP PRN (09:29)
[2021-05-14] MEDS ORDERED: Famotidine 20 MG/2 ML VIAL IVP PRN (09:29)
[2021-05-14] MEDS ORDERED: Ondansetron 4 MG/2 ML VIAL IVP PRN (09:29)
[2021-05-14] MEDS ORDERED: Ringers Solution, Lactated 1,000 ML IVC SCH (09:30)
[2021-05-14 10:58] LABS: Basophils # 0.1 K/mcL (0.0-0.2); Basophils % 0.6 %; Eosinophils # 0.1 K/mcL (0.0-0.6); Eosinophils % 1.3 %; Hematocrit 33.3 % (35.3-44.9); Hemoglobin 10.4 g/dL (11.5-15.4); Immature Granulocytes % 0.8 % (0-4); Lymphocytes # 1.4 K/mcL (0.6-4.6); Lymphocytes % 17.1 %; Mean Corpuscular HGB Conc 31.2 g/dL (31.6-35.5); Mean Corpuscular Hemoglobin 25.1 pg (28.0-33.3); Mean Corpuscular Volume 80.4 fL (83.0-100.0); Mean Platelet Volume 10.8 fL (9.4-12.4); Monocytes # 0.7 K/mcL (0.0-1.3); Monocytes % 8.5 %; Platelet Count 194 K/mcL (140-400); Red Blood Count 4.14 M/mcL (3.82-4.97); Red Cell Distribution Width 14.4 % (11.5-14.5); Segmented Neutrophils % 71.7 %; White Blood Count 8.4 K/mcL (4.3-11.1)
[2021-05-14] MEDS ORDERED: Oxytocin 30 UNIT/503 ML BAG IVC SCH (11:00)
[2021-05-14 11:07] LABS: Amphetamine Screen,Urine Negative ng/mL (Cutoff=1000); Barbiturate Screen,Urine Negative ng/mL (Cutoff=200); Benzodiazepines Screen,Urine Negative ng/mL (Cutoff=200); Cannabinoid Screen,Urine Negative ng/mL (Cutoff = 50); Cocaine Screen,Urine Negative ng/mL (Cutoff= 300); Opiate Screen,Urine Negative ng/mL (Cutoff=300); Phencyclidine Screen,Urine Negative ng/mL (Cutoff=25)
[2021-05-14] MEDS ORDERED: EPHEDrine 50 MG/ML VIAL IVP PRN (11:26)
[2021-05-14] MEDS ORDERED: Ropivacaine/PF 0.2% 20 ML VIAL EP ONE (11:26)
[2021-05-14] MEDS ORDERED: *HR* FentaNYL (PF) 100 MCG/2 ML VIAL EP ONE (11:26)
[2021-05-14] MEDS ORDERED: Epidural Premix (fent/bupiv) 110 ML EP SCH (11:30)
[2021-05-14 11:39] LABS: Influenza A PCR Negative (Negative); Influenza B PCR Negative (Negative); Resp. Syncytial Virus PCR Negative (Negative); SARS-CoV-2 by PCR (In House) Negative (Negative)
[2021-05-14] MEDS ORDERED: *HR* FentaNYL (PF) 100 MCG/2 ML VIAL ONE (20:33)
[2021-05-14] MEDS ORDERED: Ropivacaine/PF 0.2% 20 ML VIAL ONE (20:34)
[2021-05-15] MEDS ORDERED: Lanolin 7 G OINT...G. TP PRN (02:49)
[2021-05-15] MEDS ORDERED: Benzocaine/Menthol 56 GM AEROSOL SPRAY TP PRN (02:49)
[2021-05-15] MEDS ORDERED: Measles/Mumps/Rubella Vacc 0.5 ML VIAL SQ PRN (02:49)
[2021-05-15] MEDS ORDERED: Ondansetron ODT 4 MG TAB.RAPDIS SL PRN (02:49)
[2021-05-15] MEDS: Acetaminophen 325 MG TABLET PO SCH ×4 (03:37→23:43)
[2021-05-15] MEDS: Ibuprofen 600 MG TABLET PO SCH ×4 (03:37→23:43)
[2021-05-15 04:48] LABS: Basophils # 0.1 K/mcL (0.0-0.2); Basophils % 0.4 %; Eosinophils % 0.2 %; Hematocrit 28.1 % (35.3-44.9); Immature Granulocytes % 0.8 % (0-4); Lymphocytes # 1.3 K/mcL (0.6-4.6); Mean Corpuscular Hemoglobin 25.7 pg (28.0-33.3); Mean Corpuscular Volume 80.3 fL (83.0-100.0); Mean Platelet Volume 11.5 fL (9.4-12.4); Monocytes # 0.8 K/mcL (0.0-1.3); Monocytes % 5.8 %; Neutrophils # 12.2 K/mcL (1.6-8.9); Platelet Count 151 K/mcL (140-400); Red Cell Distribution Width 14.6 % (11.5-14.5); Segmented Neutrophils % 83.8 %
[2021-05-15 04:51] LABS: White Blood Count 14.5 K/mcL (4.3-11.1)
[2021-05-15] MEDS: Levothyroxine 25 MCG TABLET PO SCH (06:00)
[2021-05-15] MEDS: Prenatal Vit/FA 1 EACH TABLET PO SCH (08:10)
[2021-05-15] MEDS ORDERED: NON-FORMULARY MEDICATION 1 EACH EACH (Prenatal Vit Calc,Iron,Folic [Prenatal Vitamins] 1 E PO SCH (09:00)
[2021-05-15 18:40] VITALS: O2SAT 99
[2021-05-16] MEDS: Ibuprofen 600 MG TABLET PO SCH (06:06)
[2021-05-16] MEDS: Levothyroxine 25 MCG TABLET PO SCH (06:06)
[2021-05-16] MEDS: Acetaminophen 325 MG TABLET PO SCH (06:06)
[2021-05-16 07:15] VITALS: BP 115/57; PULSE 65; TEMP 98.4
[2021-05-16] MEDS: Prenatal Vit/FA 1 EACH TABLET PO SCH (08:28)
== END 2021-05-16 11:00 | disposition home or self-care (01) | DRG 806 ==
LOC: 1NENULAB 09:19 → 1NENUOBS 05-15 02:45
PROVIDERS: ADMIT Obstetrics & Gynecology; ATTEND Obstetrics & Gynecology